=== PATIENT | male | born 1980 | race African-American/Black ===

== ENCOUNTER 2022-01-16 09:52 | Emergency (ER) | payer OTHER ==
[~2022-01-16] VITALS: Ht 177.8 cm; Wt 100.0 kg
[2022-01-16] MEDS ORDERED: AMOX/K CLAV875 M1 PO (12:01)
[2022-01-16 12:17] VITALS: BP 110/70
== END 2022-01-16 13:06 | DRG 999 ==
LOC: ED 09:52
PROC: 0HQ1XZZ Repair Face Skin, External Approach (ICD-10-PCS; principal; 2022-01-16)
DX: S01.81XA Laceration without foreign body of other part of head, initial encounter (principal); S02.85XA Fracture of orbit, unspecified, initial encounter for closed fracture; S01.511A Laceration without foreign body of lip, initial encounter; S01.412A Laceration without foreign body of left cheek and temporomandibular area, initial encounter; Y08.89XA Assault by other specified means, initial encounter; S06.0X0A Concussion without loss of consciousness, initial encounter